=== PATIENT | female | born 1975 | race Caucasian/White ===

== ENCOUNTER 2021-11-29 14:01 | Emergency (ER) | payer MEDICAID, MEDICARE ==
[~2021-11-29] VITALS: Ht 165.1 cm; Wt 68.0 kg
[~2021-11-29 14:01] MED LIST: ACET650S25 GT; CLIN300C12 PO
[2021-11-29 15:00] LABS: HEMATOCRIT. 38.5 % (36.0-48.0); HEMOGLOBIN. 12.8 g/dL (12.0-16.0); MEAN CORPUSCULAR HEMOGLOBIN 27.5 pg (28.0-32.0); MEAN CORPUSCULAR VOLUME 82.8 fL (81.0-99.0); MEAN PLATELET VOLUME 8.5 fl (7.4-10.4); PLATELET 326 x1000/uL (130-400); RED BLOOD CELL COUNT 4.65 mill/uL (4.2-5.4); RED CELL DISTRIBUTION WIDTH 15.3 % (11.6-14.6)
[2021-11-29 15:04] LABS: CHLORIDE 113 mEq/L (98-107)
[2021-11-29 15:09] LABS: ETHANOL BLOOD < 10 mg/dL
[2021-11-29 15:19] LABS: HCG SCREEN NEGATIVE
[2021-11-29] MEDS: ACETAMINOPHEN 325MG TABLET PO STA (15:46)
[2021-11-29] MEDS: SODIUM CHLORIDE 0.9% 1,000 ML IV ONE (15:48)
[2021-11-29 16:02] LABS: PLATELET ESTIMATE NORMAL
[2021-11-29 16:26] LABS: CLARITY URINE CLEAR (CLEAR); COLOR URINE YELLOW (YELLOW); KETONES URINE NEGATIVE (NEGATIVE); LEUKOCYTE ESTERASE URINE NEGATIVE (NEGATIVE); NITRITE URINE NEGATIVE (NEGATIVE); OCCULT BLOOD URINE TRACE (NEGATIVE); PROTEIN URINE NEGATIVE (NEGATIVE); SPECIFIC GRAVITY URINE 1.026 (1.005-1.030); UROBILINOGEN URINE 0.2 E.U./dL (0.2-1.0)
[2021-11-29 16:52] LABS: CANNABINOID URINE SCREEN NEGATIVE (NEGATIVE); OPIATES URINE SCREEN NEGATIVE (NEGATIVE); PHENCYCLIDINE URINE SCREEN NEGATIVE (NEGATIVE)
[2021-11-29 16:53] LABS: *BARBITURATES SCREEN URINE NEGATIVE (NEGATIVE); *BENZODIAZEPINES SCREEN URINE NEGATIVE (NEGATIVE); *COCAINE SCREEN URINE NEGATIVE (NEGATIVE); METHADONE URINE SCREEN NEGATIVE (NEGATIVE)
[2021-11-29 16:54] LABS: *AMPHETAMINES SCREEN URINE PRESUMTIVE POSITIVE (NEGATIVE)
[2021-11-29] MEDS: KETOROLAC 15MG/ML VIAL IV NR (17:15)
[2021-11-29] MEDS: ONDANSETRON HCL 4MG/2ML INJ IV NR (17:15)
[2021-11-29] MEDS ORDERED: ONDA4TAB5 MT (18:42)
[2021-11-29] MEDS ORDERED: ACET-2708 MT (18:42)
[2021-11-30 00:30] VITALS: BP 116/71
== END 2021-11-30 00:40 | disposition home or self-care (01) ==
LOC: ER 14:01
DX: R10.9 Unspecified abdominal pain (principal); F15.10 Other stimulant abuse, uncomplicated; D72.829 Elevated white blood cell count, unspecified; Z13.9 Encounter for screening, unspecified; Z90.49 Acquired absence of other specified parts of digestive tract
CPT/HCPCS: 36415; 71045; 74176; 76700; 80053; 80305; 80320; 81003; 83690; 84703; 85025; 96361; 96374; 96375; 99285; J1885; J2405; G0480